=== PATIENT | male | born 1960 | race Caucasian/White ===

== ENCOUNTER 2021-08-29 09:09 | Outpatient (CLI) | payer BC ==
[2021-08-29 18:14] LABS: SARS-CoV-2 PCR by NAA Not Detected (NotDetected)
== END 2021-08-29 09:10 | disposition home or self-care (01) ==
LOC: CSHLAB 09:09
PROVIDERS: ATTEND Internal Medicine Pulmonary Disease
DX: Z20.822 Contact with and (suspected) exposure to COVID-19 (principal); R06.02 Shortness of breath
CPT/HCPCS: U0003; U0005

== ENCOUNTER 2021-09-03 07:25 | Outpatient (CLI) | payer BC | END 2021-09-03 07:26 | disposition home or self-care (01) | LOC: CSHCP 07:25 | PROVIDERS: ATTEND Internal Medicine Pulmonary Disease | DX: R06.02 Shortness of breath (principal); J44.9 Chronic obstructive pulmonary disease, unspecified | CPT/HCPCS: 94060; 94726; 94729; 94760 ==